=== PATIENT | female | born 1990 | race Caucasian/White ===

== ENCOUNTER 2023-09-06 15:39 | Emergency (ER) | payer SELFPAY ==
[2023-09-06 15:40] VITALS: BP 143/82
--- NOTE | 2023-09-06 16:35 | ED.GENMED ---
History of Present Illness
General
Chief Complaint: Throat Problem
Source: patient
Exam Limitations: none
Time Seen by Provider: 09/06/23 15:46
Nursing documentation reviewed up to this point in time: agreed with
Travel History
Have you had any contact with someone who has COVID-19?: No
Do you have any symptoms of coronavirus? Fever > 100 degrees, chills, cough, shortness of breath, sore throat, loss of taste or smell, muscle aches, or headache?: No
History of Present Illness
History of Present Illness:
32-year-old female without significant past medical history presenting to the emergency department today with concerns of throat discomfort bilateral over the past week or so was seen this morning due to ongoing discomfort had a fever yesterday was
diagnosed with likely strep throat was started on Augmentin and sent to the ER for further assessment concerns she also felt lightheaded. Denies any specific chest pain has been having decreased oral intake because of the sore throat. Has been
taking Motrin and Tylenol last dose was earlier this morning at least 6 hours prior to arrival to the emergency department.
Past History
Past History
ED Past Medical History: None
ED Past Surgical History: None
Social History
Personal: Single
Employment: Employed
Review of Systems
Review of Systems
Allergies reviewed?: Yes
All Other Systems: ROS reviewed and negative except as documented in HPI and ROS
Phy Exam
Physical Exam
Physical Exam:
GENERAL: Alert , in no apparent distress
EYE: pupils equal and reactive
NECK: Supple, no significant adenopathy.
ENT: Significant swelling to the posterior pharynx to the tonsils bilaterally right side tonsil is slightly larger than the left with exudate however no significant soft palate swelling or redness at this time. Grossly patent airway uvula is
midline o/p clr, mmm.
CARDIAC: Regular rate and rhythm .
LUNGS: Clear breath sounds bilaterally, no acute respiratory distress, no wheezes/rales/rhonchi
ABDOMEN: Soft, without focal tenderness, no r/g, no cvat
NEUROLOGICAL: Alert and oriented, no focal neuro deficits
SKIN: Warm and dry, skin intact.
MUSCULOSKELETAL: No edema, well perfused.
PSYCH: Normal and appropriate interaction.
Course
Orders/Labs/Results
Orders:
Orders
09/06/23 16:31
0.9% Sodium Chloride 1000 ml [Nss] 1,000 ml IV BOLUS
Dexamethasone Sod Phosphate [Decadron] 10 mg IV NOW STA
Ketorolac [Toradol] 30 mg IV NOW STA
Test Result ONCE
09/06/23 16:38
EKG [Electrocardiogram (*1)] Urgent
Reason for Study: Vertigo / Dizzy
EKG- Treatment ONCE
09/06/23 16:42
Complete Blood Count/With Diff Urgent
Comprehensive Metabolic Panel Urgent
HCG, Serum Qualitative Screen Urgent
Abnormal Lab Results
09/06/23
16:42
RBC 4.10 L 10^6/uL
(4.20-5.40)
MCH 31.5 H pg
(27.0-31.0)
Abs Immat Gran (auto) 0.1 H 10^3/uL
(0-0.05)
Absolute Neuts (auto) 8.4 H 10^3/uL
(1.4-6.5)
Absolute Lymphs (auto) 0.9 L 10^3/uL
(1.2-3.4)
Absolute Monos (auto) 0.9 H 10^3/uL
(0.1-0.6)
Neutrophils % 81.9 H %
(42.2-75.2)
Lymphocytes % 8.4 L %
(20.5-51.1)
09/06/23 16:42
09/06/23 16:42
Vital Signs
Initial and Last Documented VS:
Initial Vital Signs
Temp Pulse Resp BP Pulse Ox
98.9 F 81 18 143/82 100
09/06/23 15:40 09/06/23 15:40 09/06/23 15:40 09/06/23 15:40 09/06/23 15:40
Last Documented Vital Signs
Temp Pulse Resp BP Pulse Ox
98.9 F 81 18 143/82 100
09/06/23 15:40 09/06/23 15:40 09/06/23 15:40 09/06/23 15:40 09/06/23 15:40
MDM/Problems Addressed
MDM/Problems Addressed:
32-year-old female presenting to the emergency department today with concerns of sore throat over the past week started on Augmentin this morning via an urgent care sent to the ER due to concern of potential peritonsillar abscess. Here patient is
afebrile with normal heart rate with normal phonation uvula is midline does have swelling to the tonsils right side is larger than the left but no significant soft palate swelling. Seems less likely be significant peritonsillar abscess if this is a
developing abscess is likely too small to drain without additional findings on exam I feel that it is reasonable to trial medical management at this point with close ENT follow-up. Patient had already taken a dose of Augmentin was given a dose of
IV steroid and fluids also concern the patient has been feeling lightheaded potentially due to lack of oral intake labs were obtained. Labs unremarkable. Patient feeling much better after treatment here will follow-up closely with ENT and return
for any worsening symptoms. Does appear stable for outpatient management.
*Critical Care Note
Total Time (30-74mins, 75-104mins- exclusive of procedures): Not Applicable
ED Attending Note
-
Portions of this chart may have been created with voice recognition software.� Occasional wrong word or��sound alike� substitutions may have occurred due to the inherent limitations of voice recognition software.
Discharge Plan
Departure
Patient Disposition: Home (Routine Discharge)
Date of Disposition: 09/06/23
Time of Disposition: 18:30
Patient with high blood pressure during this ER visit?: No
Condition: Good
Covid-19: Not Applicable
Discharge Problem:
Pharyngitis
Instructions: Sore Throat, Adult (DC)
Prescriptions:
New
prednisone 20 mg tablet
40 mg PO DAILY 4 Days Qty: 8 0RF
No Action
prenat.vits,elliot,syi-dqwj-vjrrr [ Vitamin] 1 EACH tablet
1 tab PO DAILY
acetaminophen 325 MG tablet
650 mg PO Q4HPRN PRN (Reason: mild pain) 0RF
sennosides-docusate sodium 1 TABLET tablet
1 tab PO DAILYPRN PRN (Reason: constipation) 0RF
ibuprofen 600 MG tablet
400 mg PO Q4HPRN PRN (Reason: moderate pain/cramps) 0RF
Referrals:
NONE,* [Family Provider] -
Sangeetha Archer MD [Active] - Follow up in 5-7 days
Activity Restrictions/Additional Instructions:
You came to the emergency department today for evaluation of a sore throat. Here you had reassuring labs and physical examination. You were started on dexamethasone please take prednisone 40 mg once daily for the next 4 days. Please continue
taking Augmentin twice daily for the next 10 days. Additionally for discomfort you can take ibuprofen 600 mg every 6 hours as well as Tylenol 500 mg every 4-6 hours. Please follow closely with ENT. Return to the emergency department for any
worsening, new or concerning symptoms.
Interventions
Interventions:
*Risk Screen - Suicide Last Done: 09/06/23 16:35
*General Assessment Last Done: 09/06/23 16:35
*Neglect/Abuse Screening Last Done: 09/06/23 16:35
ED- Fall Risk Assessment Last Done: 09/06/23 16:51
*ED COVID-19 Vaccine History Last Done: 09/06/23 16:35
ED-EENT Assessment Last Done: 09/06/23 16:38
ED- Pulmonary Assessment Last Done: 09/06/23 16:38
[2023-09-06] MEDS: NSS 1000 IV (16:44)
[2023-09-06] MEDS: TORADOL 30 MG IV (16:44)
[2023-09-06] MEDS: DECADRON 10 MG IV (16:44)
[2023-09-06 17:00] LABS: % Basophils 0.1 % (0-2); % Immature Granulocytes 0.5 % (0-0.5); % Lymphocytes 8.4 % (20.5-51.1); % Monocytes 9.1 % (1.7-9.3); % Neutrophils 81.9 % (42.2-75.2); Absolute Immature Granulocytes 0.1 10^3/uL (0-0.05); Absolute Lymphocytes 0.9 10^3/uL (1.2-3.4); Absolute Monocytes 0.9 10^3/uL (0.1-0.6); Absolute Neutrophils 8.4 10^3/uL (1.4-6.5); Hematocrit 38.7 % (37.0-47.0); Hemoglobin 12.9 g/dL (12.0-16.0); Mean Corp Hgb Conc. 33.3 g/dL (33.0-37.0); Mean Corpuscular Hgb 31.5 pg (27.0-31.0); Mean Corpuscular Volume 94.4 fL (81.0-99.0); Mean Platelet Volume 9.1 fL (7.4-10.4); Nucleated Red Blood Cells % 0 %; Platelet Count 190 10^3/uL (130-400); Red Cell Dist. Width 13.1 % (11.5-14.5); White Blood Cell Count 10.3 10^3/uL (4.8-10.8)
[2023-09-06 17:23] LABS: ALT (SGPT) 14 U/L (0-35); AST (SGOT) 22 U/L (14-36); Albumin 4.3 g/dl (3.5-5.0); Alkaline Phosphatase 59 U/L (38-126); Blood Urea Nitrogen 8 mg/dl (7-17); Calcium 9.4 mg/dl (8.4-10.2); Carbon Dioxide 26 mmol/L (22-30); Chloride 103 mmol/L (98-107); Glucose 90 mg/dl (70-99); Potassium 3.6 mmol/L (3.5-5.1); Sodium 135 mmol/L (135-145); Total Bilirubin 0.4 mg/dl (0.2-1.3); Total Protein 7.1 g/dl (6.3-8.2); eGFR > 60.00
[2023-09-06 17:45] LABS: HCG, Serum Qualitative Screen Negative
== END 2023-09-06 18:40 | disposition home or self-care (01) ==
LOC: EMR 15:39
PROVIDERS: Physician Assistant; EMERGENCY PHYSICIAN Emergency Medicine
DX: J02.9 Acute pharyngitis, unspecified (principal)
CPT/HCPCS: 99284; 96374; 96375; 80053; 84703; 85025; 93005